=== PATIENT | male | born 1975 | race Caucasian/White ===

== ENCOUNTER 2020-01-23 13:51 | Outpatient (CLI) | payer BC ==
--- NOTE | 2020-01-23 14:31 | ULT ---
US Soft Tissue Other History: Thigh bulge Comparison: None. Findings: Real-time grayscale and color evaluation of the medial right thigh at the region of interes t was performed by the technologist. In the subcutaneous fat just underneath the skin is a lobular wider than tall slightly hyperechoic to fat mass measuring up to 6.4 cm in size. Normal vascularity. No infiltration into the adjacent soft tissues. Impression: Superficial soft tissue mass has imaging characteristics of a lipoma. If this becomes caleb nful or enlarges, MRI with and without contrast would be beneficial.
== END 2020-01-23 13:52 | disposition home or self-care (01) ==
LOC: SCSULT 13:51
PROVIDERS: ATTEND Family Medicine
DX: R22.41 Localized swelling, mass and lump, right lower limb (principal)
CPT/HCPCS: 76999

== ENCOUNTER 2020-02-15 07:40 | Outpatient (CLI) | payer BC, OTHER ==
[2020-02-16 11:15] LABS: SARS-CoV-2 MS2 Positive; SARS-CoV-2 N Gene Negative; SARS-CoV-2 S Gene Negative; SARS-CoV-2 by NAA Not Detected (NotDetected); SARS-CoV-2 orf1ab Negative
== END 2020-02-15 07:41 | disposition home or self-care (01) ==
LOC: LABBT 07:40
PROVIDERS: ATTEND Specialist
DX: Z01.818 Encounter for other preprocedural examination (principal); R22.41 Localized swelling, mass and lump, right lower limb; Z20.828 Contact with and (suspected) exposure to other viral communicable diseases
CPT/HCPCS: 87635; 93005; 93010; U0003

== ENCOUNTER 2020-02-20 09:16 | Day surgery (SDC) | payer BC ==
[2020-02-15 12:05] VITALS: BMI 36.2
--- NOTE | 2020-02-19 10:23 | HP ---
HISTORY OF PRESENT ILLNESS: Tony Aguirre is a 44-year-old male patient, followed by Dr. Glez, has a right thigh mass that is getting larger, bothersome to him. He has undergone ultrasound and MRI scan suggesting some serpiginous vessels. Ultrasound suggests a benign lipoma, but MRI cannot rule out atypical lipoma versus liposarcoma. Plan is for excision as an outpatient under general, follow up in my office in a week or two. He understands he may have to have a drain, but I think that is very unlikely. On MRI, the mass measures 4.3 x 3.6 x 2.5 cm. This correlates with physical exam. He had laboratories drawn, CBC, comprehensive metabolic panel recently that are normal. He does not have symptoms of COVID nor exposures. 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 He works for [employer] otherwise. TOBACCO: None. ALCOHOL: Rarely. PAST SURGICAL HISTORY: Elbow surgery 14, 20, and 22 years of age. MEDICATIONS: Diuretic once a day. ALLERGIES: PENICILLIN. REVIEW OF SYSTEMS: Noncontributory. FAMILY HISTORY: Noncontributory. PHYSICAL EXAMINATION: VITAL SIGNS: Weight 292 pounds, height 6 feet 3 inches, 36 BMI. Blood pressure 143/81, pulse 64, . HEAD, EYES, EARS, NOSE, AND THROAT: Unremarkable. LUNGS: Clear to auscultation. CARDIAC: Regular rate and rhythm without murmur or gallop. ABDOMEN: Soft, nontender. No mass. EXTREMITIES: Unremarkable except for right thigh medial, he has of fatty tissue mass that is mobile, size consistent with that described above, about 5 to 6 cm in diameter. ASSESSMENT AND PLAN: Right medial thigh soft tissue mass. We will plan dorsal lithotomy, general anesthesia, excision of soft tissue mass as outpatient under general anesthesia. Risks and benefits discussed. He consents. Job ID: [id number]
[2020-02-20] MEDS ORDERED: Acetaminophen 500 MG TAB ONE (10:23)
[2020-02-20] MEDS ORDERED: Ketorolac Tromethamine 30 MG/ML VIAL ONE (10:23)
[2020-02-20] MEDS ORDERED: Levofloxacin 500 mg/D5W 100 ml Premix Bag ONE (10:24)
[2020-02-20] MEDS ORDERED: Scopolamine 1.5 mg/72 hour Patch ONE (11:12)
[2020-02-20] MEDS ORDERED: Midazolam HCl 2 mg/2 ml Vial ONE ×2 (11:14→12:40)
[2020-02-20] MEDS ORDERED: Fentanyl 100 MCG/2 ML VIAL ONE (11:14)
[2020-02-20] MEDS ORDERED: Bacitracin Zinc Ointment 30 gm TUBE ONE (11:51)
[2020-02-20] MEDS ORDERED: Bupivacaine HCl 0.5%/Epinephrine 1:200,000/PF 30 ml Vial ONE (11:52)
[2020-02-20] MEDS ORDERED: Lidocaine 2% PF 5 ML VIAL ONE (11:52)
[2020-02-20] MEDS ORDERED: Lidocaine 1% (PF) 30 ML VIAL ONE (11:53)
[2020-02-20] MEDS ORDERED: Ondansetron PF 4 MG/2 ML Vial ONE (14:14)
[2020-02-20] MEDS ORDERED: Dexamethasone 20 MG/5 ML VIAL ONE (14:14)
[2020-02-20] MEDS ORDERED: PROPOFOL 200 MG/20 ML VIAL ONE (14:14)
[2020-02-20] MEDS ORDERED: Lidocaine 1% PF 5 ML VIAL ONE (14:14)
--- NOTE | 2020-02-20 19:21 | OP ---
DATE OF PROCEDURE: 02/20/2020 PREOPERATIVE DIAGNOSIS: Lipoma, right thigh, MRI indeterminate, benign. POSTOPERATIVE DIAGNOSIS: Lipoma, right thigh, MRI indeterminate, benign. PROCEDURE PERFORMED: Excision of lipoma, anterior medial right thigh. ANESTHESIA: General, local 0.5% Marcaine 30 mL mixed with 1% Xylocaine . A 7 cm incision, layered closure. Drain used. DESCRIPTION OF PROCEDURE: The patient was taken to the operating room where under general anesthesia, right thigh, groin, medial anterior prepared with ChloraPrep and draped in routine fashion after he was clipped of hair. Incision was made transversely over the palpable lipomatous mass, marked preoperatively. Incision carried through skin and subcutaneous tissue and lipomatous mass dissected free. Hemostasis gained with 2-0 silk ties and cautery. Lipomatous mass excised, submitted to Pathology. Hemostasis gained with cautery. Subcutaneous tissue was approximated with 3-0 Monocryl, skin with subdermal 4-0 Monocryl and [place] glue applied. Drain secured with 3-0 nylon suture and OpSite dressing applied. Job ID: [id number]
== END 2020-02-20 15:45 | disposition home or self-care (01) ==
LOC: SDC 09:16
PROVIDERS: ATTEND Specialist
PROC: 0JBL0ZZ Excision of Right Upper Leg Subcutaneous Tissue and Fascia, Open Approach (ICD-10-PCS; principal; 2020-02-20)
DX: D17.23 Benign lipomatous neoplasm of skin and subcutaneous tissue of right leg (principal); J45.909 Unspecified asthma, uncomplicated; Z88.0 Allergy status to penicillin
CPT/HCPCS: 88304; J1100; J1885; J1956; J2001; J2250; J2405; J2704; J3010